=== PATIENT | female | born 1995 ===

== ENCOUNTER 2018-09-02 15:11 | Emergency (ER) | payer MEDICAID ==
[2018-09-02 15:23] VITALS: BP 110/77; PULSE 72; RESP 16; TEMP 98; O2SAT 100
--- NOTE | 2018-09-02 16:30 | ED PDOC ---
Lower Extremity Pain/Injury Time Seen by Provider: 09/02/18 16:09 Chief Complaint (Nursing): Lower Extremity Problem/Injury Chief Complaint (Provider): Lower Extremity Problem/Injury History Per: Patient History/Exam Limitations: no limitations Onset/Duration Of Symptoms: Hrs (8x) Current Symptoms Are (Timing): Still Present Severity: Moderate Additional Complaint(s): 23 year old female with no past medical history presents to the ED for an evaluation of right ankle pain that started 8x hours prior to arrival. Patient states that she was carrying her daughter to her car, when she accidentally stepped in a hole in the pavement and "twisted" her right ankle while in short- heeled booties and fell against the car. Patient reports having pain immediately on ambulation, but went to work anyway. 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 Patient reports taking 1x advil tab with no relief. Patient states that the pain is okay right now, but worsens upon ambulation of pressure to the foot and joint. PMD: Shaik Romero Past Medical History Reviewed: Historical Data, Nursing Documentation, Vital Signs Vital Signs: Last Vital Signs Temp 98.0 F 09/02/18 15:19 Pulse 72 09/02/18 15:19 Resp 16 09/02/18 15:19 BP 110/77 09/02/18 15:19 Pulse Ox 100 09/02/18 15:19 SANDRA Report Viewed: Yes Primary Care Provider: Shaik Romero - Medical History PMH: No Chronic Diseases - Family History Family History: States: Unknown Family Hx - Living Arrangements Living Arrangements: With Family - Home Medications Home Medications: Ambulatory Orders Medication Instructions Recorded Ibuprofen [Motrin] 600 mg PO Q6H PRN #30 tab 09/02/18 - Allergies Allergies/Adverse Reactions: Allergies Allergy/AdvReac Type Severity Reaction Status Date / Time No Known Allergies Allergy Verified 09/02/18 15:23 Review of Systems ROS Statement: Except As Marked, All Systems Reviewed And Found Negative Musculoskeletal: Positive for: Other (right ankle pain) Physical Exam - Reviewed Nursing Documentation Reviewed: Yes Vital Signs Reviewed: Yes - Physical Exam Appears: Positive for: Well, Non-toxic, No Acute Distress Head Exam: Positive for: ATRAUMATIC, NORMOCEPHALIC Skin: Positive for: Normal Color, Warm, Dry Pulses-Dorsalis Pedis (L): 2+ Pulses-Dorsalis Pedis (R): 2+ Extremity: Positive for: Other (right lower extremity: minimal swelling of outer malleolus with small area of ecchymosis distal to the ankle joint to the anterior aspect of foot. Full ROM, capillary refill <2 seconds) Neurological/Psych: Positive for: Awake, Alert, Oriented (3x) - ECG O2 Sat by Pulse Oximetry: 100 (RA) Pulse Ox Interpretation: Normal Medical Decision Making Medical Decision Makin:09 Initial impression: 23 year old female with an ankle injury Initial plan: * XRay ankle right 3 views * reevaluation XRay read and reviewed by me, no acute fractures. Lewis bandage applied by me, aircast given. Patient is medically stable, and requires no further treatment in the ED at this time. Patient will be discharged home with Rx for motrin and instructions for RICE care of ankle. Counseling was provided and all questions were answered regarding diagnosis. There is verbal understanding agreement to discharge plan. Return if symptoms persist or worsen. Scribe Attestation: Documented by Bee Simms, acting as a scribe for Swati Cuong LANTIGUA. Provider Scribe Attestation: All medical record entries made by the Scribe were at my direction and personally dictated by me. I have reviewed the chart and agree that the record accurately reflects my personal performance of the history, physical exam, medical decision making, and the department course for this patient. I have also personally directed, reviewed, and agree with the discharge instructions and disposition. Disposition - Clinical Impression Clinical Impression: Ankle sprain, Foot sprain - Disposition Disposition Time: 16:30 Condition: GOOD Prescriptions: Ibuprofen [Motrin] 600 mg PO Q6H PRN #30 tab PRN Reason: Pain, Moderate (4-7) Instructions: Ankle Sprain (DC), Foot Sprain (DC) Forms: [employer] (Thai)
--- NOTE | 2018-09-02 16:31 | ED PDOC ---
Lower Extremity Pain/Injury Time Seen by Provider: 09/02/18 16:09 Chief Complaint (Nursing): Lower Extremity Problem/Injury Past Medical History Vital Signs: Last Vital Signs Temp 98.0 F 09/02/18 15:19 Pulse 72 09/02/18 15:19 Resp 16 09/02/18 15:19 BP 110/77 09/02/18 15:19 Pulse Ox 100 09/02/18 15:19 Primary Care Provider: Shaik Romero - Home Medications Home Medications: Ambulatory Orders Medication Instructions Recorded Ibuprofen [Motrin] 600 mg PO Q6H PRN #30 tab 09/02/18 - Allergies Allergies/Adverse Reactions: Allergies Allergy/AdvReac Type Severity Reaction Status Date / Time No Known Allergies Allergy Verified 09/02/18 15:23 - ECG O2 Sat by Pulse Oximetry: 100 Disposition - Clinical Impression Clinical Impression: Ankle sprain, Foot sprain - Patient ED Disposition Is Patient to be Admitted: No - Disposition Disposition: Routine/Home Disposition Time: 16:29 Condition: GOOD Prescriptions: Ibuprofen [Motrin] 600 mg PO Q6H PRN #30 tab PRN Reason: Pain, Moderate (4-7) Instructions: Ankle Sprain (DC), Foot Sprain (DC) - POA Present On Arrival: None
--- NOTE | 2018-09-02 17:16 | RAD ---
Date of service: 09/02/2018 PROCEDURE: Right Ankle Radiographs. HISTORY: Ankle injury COMPARISON: None available. TECHNIQUE: 3 views obtained. FINDINGS: BONES: Normal. No fracture. JOINTS: Normal. No osteoarthritis. Ankle mortise maintained. Talar dome intact SOFT TISSUES: Normal. OTHER FINDINGS: None. IMPRESSION: Normal right ankle radiographs.
== END 2018-09-02 16:30 | disposition home or self-care (01) ==
LOC: H.ER 15:11
DX: S93.401A Sprain of unspecified ligament of right ankle, initial encounter (principal); X50.9XXA Other and unspecified overexertion or strenuous movements or postures, initial encounter; Y92.89 Other specified places as the place of occurrence of the external cause